=== PATIENT | female | born 1990 | race African-American/Black ===

== ENCOUNTER 2024-03-09 09:37 | Emergency (ER) | payer OTHER, SELFPAY ==
[2024-03-09 09:39] VITALS: BP 123/64; PULSE 72; RESP 17; TEMP 36.5; O2SAT 100
--- NOTE | 2024-03-09 10:12 | ED.GENADULT ---
HPI - General Adult General Chief complaint: Unspecified Stated complaint: need med for cold sore Time Seen by Provider: 03/09/24 09:58 History of Present Illness HPI narrative: Patient is a 33-year-old female who presents to the emergency department this morning requesting a medication for her cold sore. Patient states that she normally takes Valtrex but ran and she can feel a cold sore developing, no obvious cold sore noted at this time. She denies any additional symptoms including any fevers or chills. States that she normally gets these cold sores approximately once a year normally associated with stress. No additional symptoms or concerns at this time. Related Data Allergies Allergy/AdvReac Type Severity Reaction Status Date / Time No Known Allergies Allergy Verified 03/09/24 09:41 Review of Systems Review of Systems: All systems are reviewed and are negative unless stated otherwise in the HPI. Exam Narrative: General: Alert, awake, afebrile, in no acute distress. HEENT: PERRL, no rhinorrhea, no post nasal drip, oropharynx clear. Cardiovascular: Regular rate and rhythm, no murmurs, rubs or gallops, no peripheral edema. Respiratory: Clear to auscultation bilaterally, no tachypnea, no wheezing, no rhonchi, no rubs, no respiratory distress. Abdomen: Soft, nontender, nondistended, no rebound, no guarding, no peritoneal signs. Musculoskeletal: No joint swelling or deformity, normal muscle tone. Skin: No rashes or petechia, no signs of infection. Neurological: Alert and oriented to person, place, and time. Follows all commands. No focal deficits, speech is clear and fluent. Course Vital Signs Vital signs: Vital Signs Temperature 97.7 F 03/09/24 09:39 Pulse Rate 72 03/09/24 09:39 Respiratory Rate 17 03/09/24 09:39 Blood Pressure 123/64 03/09/24 09:39 Pulse Oximetry 100 03/09/24 09:39 Oxygen Delivery Room Air 03/09/24 09:39 Temperature 97.7 F 03/09/24 09:39 Pulse Rate 72 03/09/24 09:39 Respiratory Rate 17 03/09/24 09:39 Blood Pressure 123/64 03/09/24 09:39 Pulse Oximetry 100 03/09/24 09:39 Oxygen Delivery Room Air 03/09/24 09:39 Medical Decision Making MDM Narrative Medical decision making narrative: The patient was evaluated by myself in the emergency department. History is obtained from patient who is an independent historian and physical exam was performed. External medical records were reviewed at this time. Differential diagnosis considerations include canker sore, cold sore, HSV 1. 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 I have evaluated and discussed social determinants of health with the patient that could potentially impact subsequent diagnosis and treatment plans. On repeat assessment of the patient, reevaluation revealed that the patient is doing well and is in no acute distress. Patient symptoms have improved since she arrived to our emergency department. Repeat vital signs were all reviewed and noted to be stable. Differential diagnosis and treatment plan were discussed with the patient at bedside. Patient agrees with discussion and after shared medical decision making agrees with discharge. All questions were answered to the patient's satisfaction. Patient will follow up with her PCP in 3-5 days. Patient was provided with a script for Valtrex to use as prescribed. Patient was provided with strict return precautions and instructed to return to the emergency department if any new or worsening symptoms develop. The patient was discharged in stable condition. Vital Signs Vital Signs: Vital Signs Temperature 97.7 F 03/09/24 09:39 Pulse Rate 72 03/09/24 09:39 Respiratory Rate 17 03/09/24 09:39 Blood Pressure 123/64 03/09/24 09:39 Pulse Oximetry 100 03/09/24 09:39 Oxygen Delivery Room Air 03/09/24 09:39 Temperature 97.7 F 03/09/24 09:39 Pulse Rate 72 03/09/24 09:39 Respiratory Rate 17 0
== END 2024-03-09 10:30 | disposition home or self-care (01) ==
LOC: ANHED 10:15
PROVIDERS: Emergency Provider Emergency Medicine
DX: B00.1 Herpesviral vesicular dermatitis (principal)
CPT/HCPCS: 99283

== ENCOUNTER 2025-06-03 00:32 | Emergency (ER) | payer OTHER, SELFPAY ==
--- NOTE | ~2025-06-03 | XR_ITS ---
Examination: XR chest 1V portable Clinical History: cough Comparison: None Technique: Portable AP Findings: Heart size normal. Lungs clear. No acute bony abnormality. IMPRESSION: 1. No acute cardiopulmonary findings given portable technique. Reviewed, dictated and finalized at location R. WARE DESIGN ENGINEER
[2025-06-03 00:38] VITALS: BP 123/84; PULSE 74; RESP 16; TEMP 36.7; O2SAT 100
--- NOTE | 2025-06-03 00:43 | ED_ITS ---
HPI - SOB/Dyspnea General Chief Complaint: Shortness of Breath/Dyspnea Stated Complaint: acute asthma Time Seen by Provider: 06/03/25 00:34 History of Present Illness HPI Narrative: 34-year-old female with history of seasonal daily allergies presenting to the emergency department with which she believes could be asthma. Patient states that she has been having some progressive tightness in her chest and shortness of breath associated with nonproductive cough. Only new exposure or allergen her life is been a new pet at home that she is notes has been tracking her symptoms worse. She takes a daily Claritin but no nebulization or albuterol treatments. Is enquiring about starting albuterol or something for helping her breathing. Denies any chest pain, nausea, abdominal pain, back pain, fever chills. Denies any sick contacts. States that she but [id number] inhaler that has been helping occasionally but she has worried about asthma at this time. No personal history of asthma nor family history of asthma. Has a family history of eczema. Related Data Allergies Allergy/AdvReac Type Severity Reaction Status Date / Time No Known Allergies Allergy Verified 03/09/24 09:41 Exam Narrative: GENERAL: Well-appearing, not any acute distress, converses in full sentences without any dyspnea. Coughing frequently throughout the exam HEAD: [Normocephalic, atraumatic.] EYES: [PERRLA and EOMI.] ENT: Nares clear, no rhinorrhea or epistaxis. Mucous membranes moist. NECK: Supple. CHEST: Coarse asymmetric breath sounds right worse than left, no wheezing or prolonged expiratory phase, no tachypnea. Coughs throughout the exam. HEART: [Regular rate and rhythm]. No murmur heard. [Normal peripheral pulses.] ABDOMEN: [Soft, nondistended], [nontender], [No rigidity or guarding] EXTREMITIES: Normal range of motion. [No edema.] SKIN: Warm, dry, no rash. NEURO: [No focal deficits]. Alert and oriented [x3.] PSYCH: [Normal mood and affect.] Course Vital Signs Vital signs: Vital Signs Temperature 36.7 C 06/03/25 00:38 Pulse Rate 74 06/03/25 00:38 Respiratory Rate 16 06/03/25 00:38 Blood Pressure 123/84 06/03/25 00:38 Pulse Oximetry 100 06/03/25 00:38 Temperature 37.1 C 06/03/25 01:31 Pulse Rate 74 06/03/25 01:31 Respiratory Rate 16 06/03/25 01:31 Blood Pressure 124/63 06/03/25 01:31 Pulse Oximetry 98 06/03/25 01:31 Oxygen Delivery Room Air 06/03/25 00:51 [facility] Narrative Medical decision making narrative: 34-year-old female with history of seasonal daily allergies presenting to the emergency department with which she believes could be asthma. Patient states that she has been having some progressive tightness in her chest and shortness of breath associated with nonproductive cough. Only new exposure or allergen her life is been a new pet at home that she is notes has been tracking her symp toms worse. She takes a daily Claritin but no nebulization or albuterol treatments. Is enquiring about starting albuterol or something for helping her breathing. Denies any chest pain, nausea, abdominal pain, back pain, fever chills. Denies any sick contacts. States that she but [id number] inhaler that has been helping occasionally but she has worried about asthma at this time. No personal history of asthma nor family history of asthma. Has a family history of eczema. She does have some asymmetric coarse breath sounds worse on the right than the left. Suspect more bronchitis verses upper respiratory infection versus allergy with dander exposure from her new dog rather than asthma but will obtain a chest x-ray to rule out any possibilities like pneumonia give her a DuoNeb treatment for symptom control. Patient felt better after nebs. X-ray unremarkable for any pneumonia. Discharge with albuterol prescription. Differential Diagnosis Differential Diagnosis: Suspect more bronchitis verses upper respiratory infection versus allergy with dander exposure from her new dog rather than asthma Lab Data [facility] Lab Attestation statement: I personally reviewed the patient's lab results. Imaging Data Attestation: I personally reviewed and interpreted this imaging study as follows: My impression: No pneumonia Discharge Plan Discharge Clinical Impression: Bronchitis Patient Disposition: Home Condition: Stable Instructions: Antibiotic Form, Acute Bronchitis (ED), Allergies (ED) Additional Instructions: Symptoms sound consistent with bronchitis/allergies rather than asthma. Chest x-ray shows no pneumonia. We have prescribed an albuterol inhaler as well as a short course of steroids for symptom and allergy control. Return with any emergent concerns otherwise follow-up with a primary care provider. Patient Language: [place] Prescriptions: New methylprednisolone [Medrol (Husam)] 4 mg tablets,dose pack See Rx Instructions .ROUTE .COMPLEX Qty: 21 0RF Rx Instructions: orally per package directions albuterol sulfate 90 mcg/actuation HFA aerosol inhaler 2 puff inhalation QID PRN (Reason: shortness of breath or wheezing) Qty: 8.5 0RF No Action valacyclovir [Valtrex] 1 gram tablet 2,000 mg PO Q12H 1 Days Qty: 4 3RF Follow-up/Referrals: PHYSICIAN,GRAINING PRESS OPERATOR [Primary Care Provider, Internal Medicine] Time of Disposition: 01:22
[2025-06-03 01:01] VITALS: BP 91/61; PULSE 80; RESP 16; TEMP 37.1; O2SAT 98
[2025-06-03] MEDS: IPRATROPIUM 0.5 MG/ALBUTEROL SULFATE 2.5 MG (BASE) AMPUL.NEB 3 ML INHALATION (01:01)
[2025-06-03 01:31] VITALS: BP 124/63; PULSE 74; RESP 16; TEMP 37.1; O2SAT 98
== END 2025-06-03 01:33 | disposition home or self-care (01) ==
LOC: ANHED 01:28
PROVIDERS: Emergency Provider Student in an Organized Health Care Education/Training Program
DX: J40 Bronchitis, not specified as acute or chronic (principal)
CPT/HCPCS: 71045; 94640; 99283